=== PATIENT | female | born 1940 | race Caucasian/White ===

== ENCOUNTER 2018-02-28 10:02 | Day surgery (SDC) | payer MEDICARE ==
--- NOTE | 2018-02-22 22:21 | HP ---
PREOPERATIVE HISTORY AND PHYSICAL: DATE OF ADMISSION/SURGERY: 02/28/18 [facility] DATE OF OFFICE VISIT/ENCOUNTER: 02/08/18 ATTENDING SURGEON: Trista Singleton MD * (DICTATED BY EILEEN PERALTA) PROCEDURE: Right index finger trigger release, excision mass. CHIEF COMPLAINT: Right index finger triggering, mass on right index finger. HISTORY OF PRESENT ILLNESS: This is a 77-year-old female. She has been having triggering and locking of the index finger that has been ongoing for 6 months. She also reports that a bump has been present on the dorsal aspect of the DIP joint, which has become very bothersome. She has had trigger finger releases in the past and has done well with those. She is interested in pursuing trigger finger release for her right index finger and also excision of the mass. 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 She will remain on Xarelto throughout the perioperative period. PAST MEDICAL HISTORY: 1. History of DVT/PE. 2. Hypertension. 3. Hyperlipidemia. 4. Peripheral vascular disease. 5. GERD. 6. Anxiety. PAST SURGICAL HISTORY: 1. Bowel resection. 2. Hernia repair. 3. 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 4. Carpal tunnel release. 5. Trigger finger releases, both hands. 6. Bilateral total hip arthroplasties. CURRENT MEDICATIONS: 1. Albuterol sulfate 4 times a day p.r.n. 2. Breo Ellipta 200/25 mcg/INH. 3. [employer] niacin flush free 400/100 mg daily. 4. Clobetasol propionate 0.05% topical every day as needed. 5. Klor-Con 10 mEq b.i.d. 6. Librax p.r.n. 7. Metoprolol tartrate 25 mg twice a day. 8. Valsartan 80 mg daily. 9. Vitamin B12 monthly. 10. Vitamin D3 2000 International Units daily. 11. Xarelto 20 mg daily. ALLERGIES: CIPROFLOXACIN, reaction unknown; PENICILLIN causes hives; TYLENOL, reaction unknown; BACTRIM, reaction unknown; LISINOPRIL, reaction unknown. Also , the patient cannot take NSAIDs because she is on Xarelto. FAMILY MEDICAL HISTORY: Heart disease, diabetes, cancer. SOCIAL HISTORY: The patient is retired. She is a former smoker. She quit smoking about 18 years ago. Prior to that, she smoked 2 packs per day since age 15. She denies recreational drug use and does not drink alcohol. REVIEW OF SYSTEMS: Negative for general, cephalic, cardiovascular, respiratory , GI, , other musculoskeletal, integumentary, endocrine, neurologic, and hematologic symptoms. Infectious Disease: Negative for history of MRSA, hepatitis C, HIV. PHYSICAL EXAMINATION GENERAL: Well-developed, well-nourished 77-year-old female, in no acute distress. She presents in a wheelchair. VITAL SIGNS: Height 5 feet 3 inches, weight 140 pounds. Pulse rate 82, blood pressure 148/74. HEENT: Normocephalic, atraumatic. Pupils are equal, round, and reactive to light and accommodation. Extraocular movements are intact. Throat is clear. NECK: Supple. No palpable lymph nodes. PULMONARY: Lungs are clear to auscultation bilaterally. No wheezes, rales, or rhonchi. CARDIOVASCULAR: Regular rate and rhythm. S1, S2. No murmurs, rubs, or gallops. No edema. ABDOMEN: Positive bowel sounds. Soft, nontender. NEUROLOGICAL: Alert and oriented x3. Cranial nerves II through XII are intact. Sensation is intact to light touch. MUSCULOSKELETAL: On exam of her right hand, she has tenderness to palpation at the A1 jamar of the index finger. She also has 2 nodules at the dorsal aspect of the DIP joint that are tender to palpation. She has decreased range of motion at the DIP joint in both flexion and extension and she cannot make a full tight fist. IMAGING STUDIES: X-rays, AP, lateral, and oblique of the right index finger show osteophytes at the DIP joint of the right index finger. 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 PLAN: The patient is scheduled to undergo a right index finger trigger release and excision mass with Dr. Singleton on 02/28/18. She will return to the office 10 days postop for followup and suture removal. She has tramadol at home that she will plan on using for postoperative pain management. EILEEN PERALTA [id number]/[facility] #: [id number] MAE
[~2018-02-28 10:02] MED LIST: Buffered Lidocaine 0.9% SYRIN* 5 ML/SYR SYRINGE INTRADERM ONE; Dexamethasone IV* 4 MG/ML 1 ML (4 MG) IV SLOW PU ONE; Dexamethasone IV* 4 MG/ML 1 ML (4 MG) ONE; Famotidine IV* 10 MG/ML 2 ML (20 mg) IV ONE; Famotidine IV* 10 MG/ML 2 ML (20 mg) ONE; Lidocaine 1% INJ* 10 MG/ML 30 ML SDV ONE
[2018-02-28] MEDS ORDERED: Propofol* 10 MG/ML 20 ML BTL ONE (12:06)
[2018-02-28] MEDS ORDERED: Lidocaine 2% PF * 5 ML VIAL ONE (12:06)
[2018-02-28] MEDS ORDERED: fentaNYL* 50 MCG/ML 2 ML VIAL (100 MCG VIAL) ONE (12:06)
[2018-02-28] MEDS ORDERED: Midazolam* 1 MG/ML 2 ML VIAL (2 MG) ONE (12:06)
[2018-02-28] MEDS ORDERED: fentaNYL* 50 MCG/ML 2 ML VIAL (100 MCG VIAL) IV PRN (12:18)
[2018-02-28] MEDS ORDERED: Ondansetron INJ* 2 MG/ML VIAL IV PRN (12:18)
[2018-02-28] MEDS ORDERED: oxyCODONE TAB* 5 MG TAB PO PRN (12:18)
[2018-02-28] MEDS ORDERED: Naloxone* 0.4 MG/ML 1 ML VIAL IV PRN (12:18)
[2018-02-28] MEDS ORDERED: Bupivacaine 0.5%* 50 ML VIAL ONE (12:21)
[2018-02-28 13:37] VITALS: BP 117/62
[2018-02-28] MEDS ORDERED: Bupivacaine 0.25% SDV PF* 10 ML VIAL INJ ONE ×2 (15:18→15:21)
--- NOTE | 2018-03-01 07:22 | OP ---
DATE OF OPERATION: 02/28/18 [facility] DATE OF : 44 SURGEON: Trista Singleton MD CAN LINE OPERATOR: EILEEN Lyon ANESTHESIA: Local MAC. ESTIMATED BLOOD LOSS: Zero. TOURNIQUET TIME: Approximately 20 minutes. PRE-OP DIAGNOSES: Index finger triggering and mass on the dorsal aspect of the right index finger. POST-OP DIAGNOSES: Index finger triggering and mass on the dorsal aspect of the right index finger. OPERATIVE PROCEDURE: Right index finger trigger release and mass excision. INDICATIONS: Zabrina is a 77-year-old woman who has painful mass on the dorsal aspect of her right index fingers as well as triggering of the right index finger. She presents for mass excision and trigger finger release. DESCRIPTION OF PROCEDURE: The patient was brought to the operating room, was given a sedation anesthetic and local infiltration with 10 cc of 0.5% plain Marcaine. The skin of her right upper extremity was prepped and draped in the usual sterile fashion. The hand and forearm were exsanguinated and the tourniquet elevated to 250 mmHg. An H-shaped incision was made on the dorsal aspect of the DIP joint, we dissected through the subcutaneous tissue sharply down to the extensor tendon. There was a ganglion cyst emanating from the DIP joint. This was removed along with the underlying osteophytes and was sent for pathology. The wound was irrigated and skin edges were reapproximated with 4-0 nylon suture. Next, a transverse incision was made centered over the A1 jamar of the right index finger. We dissected bluntly through the subcutaneous tissue down to the jamar. The jamar was incised longitudinally completely releasing the flexor tendons, which were in good condition. The wound was irrigated and the skin edges were reapproximated with 4-0 nylon suture. The wound was dressed with Xeroform, 4x4, Webril, and an Maurice wrap. The patient tolerated the procedure well and was brought to the recovery room in good condition. The DIP joint was splinted in extension with an aluminum foam splint because the tendon was significantly thin. [id number]/[facility] #: [id number] MTDD
== END 2018-02-28 13:33 | disposition home or self-care (01) ==
LOC: OREAST 10:02
PROVIDERS: ATTEND Orthopaedic Surgery
DX: M65.321 Trigger finger, right index finger (principal); R22.31 Localized swelling, mass and lump, right upper limb; I10 Essential (primary) hypertension; J44.9 Chronic obstructive pulmonary disease, unspecified; E78.5 Hyperlipidemia, unspecified; I73.9 Peripheral vascular disease, unspecified; Z79.01 Long term (current) use of anticoagulants; Z86.718 Personal history of other venous thrombosis and embolism; Z86.711 Personal history of pulmonary embolism
CPT/HCPCS: 88304; J1100; J2250; J2704; J3010; J3490